=== PATIENT | male | born 1995 | race Caucasian/White ===

== ENCOUNTER 2022-03-12 16:31 | Emergency (ER) | payer OTHER ==
[2022-03-12] MEDS ORDERED: CIPRO500 MG PO (17:49)
== END 2022-03-12 17:53 | disposition home or self-care (01) ==
LOC: FER 16:31
DX: S91.331A Puncture wound without foreign body, right foot, initial encounter (principal); Z88.2 Allergy status to sulfonamides; Z23 Encounter for immunization; W45.0XXA Nail entering through skin, initial encounter; Y92.009 Unspecified place in unspecified non-institutional (private) residence as the place of occurrence of the external cause
CPT/HCPCS: 73630; 90471; 90715

== ENCOUNTER 2022-07-29 00:06 | Emergency (ER) | payer OTHER ==
[~2022-07-29 00:06] MED LIST: CIPRO500 MG PO
[2022-07-29 01:39] LABS: CORONAVIRUS 2019 SARS-COV-2 NEGATIVE (NEGATIVE); INFLUENZA A NAA NEGATIVE (NEGATIVE)
== END 2022-07-29 03:28 | disposition home or self-care (01) ==
LOC: FER 00:06
PROVIDERS: Emergency Medicine
DX: M54.2 Cervicalgia (principal); F17.200 Nicotine dependence, unspecified, uncomplicated; Z88.2 Allergy status to sulfonamides; Z88.6 Allergy status to analgesic agent; Z20.822 Contact with and (suspected) exposure to COVID-19
CPT/HCPCS: 72125; 96372; J1030; J1885; U0002

== ENCOUNTER 2022-08-06 21:38 | Emergency (ER) | payer OTHER ==
[2022-08-06 22:05] LABS: BASOPHIL 0.2 % (0-2); EOSINOPHIL 0.2 % (0-5); HCT 44.9 % (42.0-52.0); LYMPHOCYTE 15.9 % (15-48); MCH 28.8 pg (25.0-31.0); MCHC 33.4 g/dL (32.0-36.0); MCV 86.2 fL (78.0-100.0); MONOCYTE 7.3 % (0-12); NEUTROPHIL 75.6 % (41-80); NRBC 0; PLT 305 K/uL (150-400); RBC 5.21 M/uL (4.70-6.00); RDW 13.8 % (11.5-14.0); WBC 17.9 K/uL (4.0-10.5)
[2022-08-06 22:10] LABS: INR 1.03 (0.9-1.2); PROTHROMBIN TIME 13.2 SECONDS (11.9-13.9); PTT 24.9 SECONDS (24.9-34.6)
[2022-08-06 22:20] LABS: ACETAMINOPHEN (TYLENOL) <2.0 ug/mL (10.0-30.0); ALBUMIN 4.1 g/dL (3.4-5.0); ALKALINE PHOSHATASE 108 U/L (46-116); ALT 28 U/L (16-63); AST 17 U/L (15-37); BILIRUBIN - TOTAL 0.3 mg/dL (0.2-1.0); BUN 14 mg/dL (7-18); BUN/CREAT RATIO (CALC) 14.6 RATIO; C-REACTIVE PROTEIN < 0.20 mg/dL (<=0.90); CHLORIDE 101 mmol/L (98-107); CO2 (BICARBONATE) 25 mmol/L (21-32); CREATININE 0.96 mg/dL (0.67-1.17); GLOBULIN (CALCULATION) 3.9 g/dL; GLUCOSE 154 mg/dL (74-106); POTASSIUM 3.5 mmol/L (3.5-5.1)
[2022-08-06 23:04] LABS: BILIRUBIN NEGATIVE (NEGATIVE); BLOOD NEGATIVE Ery/uL (NEGATIVE); CLARITY CLEAR (CLEAR); COLOR YELLOW (YELLOW); GLUCOSE (U) NORMAL (NORMAL); LEUKOCYTES NEGATIVE Leu/uL (NEGATIVE); NITRITE NEGATIVE (NEGATIVE); PROTEIN NEGATIVE (NEGATIVE); UROBILINOGEN 0.2 mg/dL (0.2-1.0)
[2022-08-06 23:12] LABS: AMPHETAMINES NEGATIVE (NEGATIVE); BARBITURATES NEGATIVE (NEGATIVE); ECSTASY (MDMA) NEGATIVE (NEGATIVE); MARIJUANA (THC) NEGATIVE (NEGATIVE); METHADONE NEGATIVE (NEGATIVE); OPIATES NEGATIVE (NEGATIVE); OXYCODONE NEGATIVE (NEGATIVE)
== END 2022-08-07 01:28 | disposition home or self-care (01) ==
LOC: FER 21:38
PROVIDERS: Emergency Medicine
DX: G43.909 Migraine, unspecified, not intractable, without status migrainosus (principal); R55 Syncope and collapse; R00.0 Tachycardia, unspecified
CPT/HCPCS: 36415; 36600; 70450; 71045; 80053; 80305; 81003; 82803; 83605; 84484; 85025; 85610; 85730; 86140; 87040; 93005; G0480; J1885; J2405; J7030